=== PATIENT | male | born 1990 | race Caucasian/White ===

== ENCOUNTER 2020-06-02 12:14 | Emergency (ER) | payer OTHER, SELFPAY ==
[2018-07-15 09:39] VITALS: BMI 27.6
[2020-06-02] VITALS (8 sets, daily range): BP systolic 144–151; BP diastolic 79–97; PULSE 85–97; RESP 14–18; TEMP 36.4–36.7; O2SAT 97–99; BMI 27.8
--- NOTE | 2020-06-02 12:33 | CT_ITS ---
STUDY: CT BRAIN WITHOUT CONTRAST REASON FOR EXAM: Male, 29 years old. MENTAL STATUS CHANGES RADIATION DOSAGE (If Supplied By Facility): CTDIvol = ( 44.99 ) mGy, DLP = ( 779.24 ) mGycm TECHNIQUE: Transaxial CT imaging of the brain was performed without administration of intravenous contrast material. Individualized dose optimization techniques were used for this CT. COMPARISON: No relevant priors. FINDINGS: Normal soft tissue structures. Normal calvarium. Normal size ventricles and extra-axial spaces for the patient''s age. Normal white matter tracts of the cerebral hemispheres. Normal basal ganglia and thalami. Normal brainstem. Normal cerebellum. There is no intracranial hemorrhage. There are no findings of an acute ischemic infarction. Normal visualized paranasal sinuses. CT/Brain/Head without Contrast IMPRESSION: Normal unenhanced CT scan of the brain. Electronically Signed: Al Gamble MD at 13:23 EDT Tel , Service support ,
--- NOTE | 2020-06-02 12:34 | ED.DCSUM_ITS ---
History of Present Illness Informant: Patient, Family Onset: Weeks - 1 week Context: Gradual Onset Conflict: Family Timing: Continuous Current Severity: Severe Maximum Severity: Severe Worsened by: Situational factors Relieved by: nothing Associated Symptoms: Change in sleeping, Suicidal Thoughts, Paranoia, Visual Hallucinations Specific plan (suicidal thought): Patient dad this morning he was going to use the dog's leash around neck Narrative: 29-year-old male no significant past medical history presents to emergency department with suicidal thoughts paranoia and visual hallucinations. He has been having these for about a week. He told his dad this morning he was going to use the dog's leash to wrap it around his neck to commit suicide. He was seen by his primary care 2 days ago on Wednesday and started on Prozac. The patient has not had any auditory hallucinations but he does admit to seeing things he has not been sleeping well. He denies drug use. He used to drink 2 or 3 beers a day but he stopped drinking a little over a week ago. He also recently broke up with his girlfriend. Denies any history of similar symptoms. Patient's father states that there are some extended relatives that have history of paranoid schizophrenia Prior similar symptoms: No Recent Illness/Hospitalization: No <Shay Kulkarni - Last Filed: 06/02/20 14:55> <Elgin Plunkett - Last Filed: 06/02/20 17:56> Chief Complaint: Mental Health Past Medical History Prior records reviewed: Yes Past Medical History: None Surgical History: no surgical history Lives: With Family Smoking Status: Current every day smoker Alcohol: Occasional Drugs: None <Shay Kulkarni - Last Filed: 06/02/20 14:55> <Elgin Plunkett - Last Filed: 06/02/20 17:56> - Allergies and Home Meds Allergies/Adverse Reactions: Allergies No Known Allergies Allergy (Verified 06/02/20 12:18) Primary Care Physician: Care Physician,No Primary [Primary Care Provider] - Review of Systems All systems negative except as indicated General: Denies: Chills, Fever, Sweats Eyes: Denies: Visual changes - bilaterally, Diplopia ENT: Denies: Rhinorrhea, Sore throat Cardiovascular: Denies: Chest pain, Palpitations Respiratory: Denies: Dyspnea, Cough, Dyspnea on exertion Gastrointestinal: Denies: Abdominal pain, Nausea, Vomiting, Diarrhea, Melena, Hematochezia Genitourinary: Denies: Dysuria, Hematuria, Frequency Musculoskeletal: Denies: Back pain, Extremity Pain Skin: Denies: Rash, Wounds Neurological: Denies: Headache, Weakness, Numbness Psych: Reports: Suicidal thoughts, Suicidal ideations <Shay Kulkarni - Last Filed: 06/02/20 14:55> Physical Exam Vital Signs/Narrative: Vital Signs Temp Pulse Resp BP Pulse Ox 06/02/20 12:16 97.5 F L 85 16 149/97 H 97 Inital Vital Signs reviewed: Yes General: Well nourished, Well developed Head: Normocephalic, Atraumatic Eyes: Perrl, EOMI ENT: Moist mucous membranes, No rhinorrhea Neck: Supple, Nontender Cardiovascular: Regular rate, Regular rhythm, No murmurs Respiratory: No distress, CTA bilaterally, Chest nontender Abdomen: Soft, Nontender, Nondistended, Normal bowel sounds Back: Nontender, Normal Inspection Extremities: Nontender, No Edema Skin: Normal color, No rash Neurological: Alert, Oriented x3, Cranial nerves II-XII grossly intact, Normal Strength, Normal Sensation Psych: Normal Speech Pattern, Normal Appearance, Flat Affect, Hallucinations, Delusions, Paranoid Ideation <Shay Kulkarni - Last Filed: 06/02/20 14:55> Vital Signs/Narrative: Vital Signs Resp 06/02/20 17:00 16 06/02/20 16:05 15 06/02/20 15:00 15 <Elgin Plunkett - Last Filed: 06/02/20 17:56> Diagnostic/Tx/Re-eval Impressions Brain CT 06/02/20 12:33 IMPRESSION: Normal unenhanced CT scan of the brain. Electronically Signed: Al Gamble MD at 13:23 EDT Tel , Service support , 06/02/20 12:33 Brain/Head without Contrast [CT] Stat Laboratory Results 06/02/20 06/02/20 06/02/20 12:44 12:44 12:44 WBC 9.3 RBC 5.05 Hgb 15.3 Hct 44.8 MCV 88.7 MCH 30.3 MCHC 34.2 RDW Std Deviation 36.9 RDW Coeff of Corby 11.6 Plt Count 273 MPV 8.8 Immature Gran % (Auto) 0.100 Neut % (Auto) 80.4 H Lymph % (Auto) 14.9 L Kershaw % (Auto) 4.1 Eos % (Auto) 0.3 Baso % (Auto) 0.2 Absolute Neuts (auto) 7.5 Absolute Lymphs (auto) 1.39 Nucleated RBC % 0 Sodium 141 Potassium 3.7 Chloride 108 H Carbon Dioxide 28.0 Anion Gap 5 BUN 11 Creatinine 0.98 Estim Creat Clear Calc 115.87 Est GFR (MDRD) Af Amer 117 Est GFR (MDRD) Non-Af 96 BUN/Creatinine Ratio 11.2 Glucose 95 Calcium 9.3 Total Bilirubin 0.50 AST 12 L ALT 27 Alkaline Phosphatase 63 Total Protein 8.0 Albumin 4.5 Globulin 3.5 Albumin/Globulin Ratio 1.3 Urine Opiates Screen Urine Methadone Screen Ur Barbiturates Screen Ur Phencyclidine Scrn Ur Amphetamines Screen U Methamphetamin-MDMA U Benzodiazepines Scrn Urine Cocaine Screen U Cannabinoids Screen Ur Drug Screen Comment Ethyl Alcohol < 3.0 06/02/20 14:00 WBC RBC Hgb Hct MCV MCH MCHC RDW Std Deviation RDW Coeff of Corby Plt Count MPV Immature Gran % (Auto) Neut % (Auto) Lymph % (Auto) Kershaw % (Auto) Eos % (Auto) Baso % (Auto) Absolute Neuts (auto) Absolute Lymphs (auto) Nucleated RBC % Sodium Potassium Chloride Carbon Dioxide Anion Gap BUN Creatinine Estim Creat Clear Calc Est GFR (MDRD) Af Amer Est GFR (MDRD) Non-Af BUN/Creatinine Ratio Glucose Calcium Total Bilirubin AST ALT Alkaline Phosphatase Total Protein Albumin Globulin Albumin/Globulin Ratio Urine Opiates Screen NEGATIVE Urine Methadone Screen NEGATIVE Ur Barbiturates Screen NEGATIVE Ur Phencyclidine Scrn NEGATIVE Ur Amphetamines Screen NEGATIVE U Methamphetamin-MDMA NEGATIVE U Benzodiazepines Scrn NEGATIVE Urine Cocaine Screen NEGATIVE U Cannabinoids Screen POSITIVE H Ur Drug Screen Comment Ethyl Alcohol Restraints applied: No Medical screening work-up was pursued. CT brain was unremarkable. Patient's laboratory work was unremarkable. His alcohol level was negative drug screen positive for THC. Patient remains cooperative. He will be evaluated by crisis for paranoia and hallucinations and delusions. <Shay Kulkarni - Last Filed: 06/02/20 14:55> I saw this patient with the physician carpenter assistant. Patient presents with paranoia and delusions and suicidal ideation. He underwent medical clearance as above. Patient was evaluated by crisis and plan will be psychiatric hospitalization/transfer. <Elgin Plunkett - Last Filed: 06/02/20 17:56> ED Disposition <Shay Kulkarni - Last Filed: 06/02/20 14:55> <Elgni Plunkett - Last Filed: 06/02/20 17:56> - Plan for ED Patient: Disposition: Psychiatric Hospital or Unit Diagnosis: Paranoid delusion, Hallucinations Referrals: Care Physician,No Primary [Primary Care Provider] -
[2020-06-02 12:57] LABS: Absolute Lymphocyte Count 1.39 X10^3/uL (0.83-4.51); Absolute Neutrophil Count 7.5 X10^3/uL (2.0-7.7); Basophil# 0.02 X10^3/uL; Basophil% 0.2 % (0-1); Eosinophil# 0.03 X10^3/uL; Eosinophils% 0.3 % (0-5); Hematocrit 44.8 % (40-54); Hemoglobin 15.3 g/dL (13.0-16.5); Lymphocyte # 1.39 X10^3/ul (4.0); Lymphocyte % 14.9 % (19-41); Mean Corp Hgb Conc 34.2 g/dL (32-36); Mean Corpuscular Hgb 30.3 pg (27.0-32.0); Mean Corpuscular Volume 88.7 fL (80-94); Mean Platelet Vol. 8.8 fl (6.2-12.0); Monocyte# 0.38 X10^3/uL; Monocyte% 4.1 % (0-10); NRBC Flagged by Analyzer 0 % (0-5); Neutrophil # 7.47 X10^3/uL (2.7-7.7); Neutrophil % 80.4 % (47-70); Platelet Count 273 K/mm3 (150-450); RBC Distribution Width CV 11.6 % (11.6-14.6); RBC Distribution Width SD 36.9 fl (35.1-43.9); Red Blood Count 5.05 M/mm3 (4.6-6.2); White Blood Count 9.3 K/mm3 (4.4-11.0)
[2020-06-02 13:15] LABS: ALB/GLOB Ratio 1.3 RATIO (0.9-2.4); AST(SGOT) 12 U/L (15-37); Alanine Aminotransfer ALT/SGPT 27 U/L (16-61); Albumin, Serum 4.5 g/dL (3.2-5.0); Alkaline Phosphatase 63 U/L (45-117); Anion Gap 5 (5-15); BUN 11 mg/dL (7-18); BUN/Creat Ratio 11.2 RATIO (10-20); Calcium,Total 9.3 mg/dL (8.5-10.1); Chloride 108 mmol/L (98-107); Creatinine, Serum 0.98 mg/dL (0.70-1.30); EST Glomerular Filtration Rate 96 mL/min (>60); Est Glom Filt Rate - Afr Amer 117 mL/min (>60); Estimated Creatinine Clearance 115.87 ml/min; Globulin 3.5 g/dL (2.2-4.2); Glucose 95 mg/dL (74-106); Potassium 3.7 mmol/L (3.5-5.1); Sodium Level 141 mmol/L (136-145)
[2020-06-02 13:28] LABS: Alcohol, Blood (Medical)-Serum < 3.0 mg/dL
[2020-06-02 14:30] LABS: Amphetamine Urine VISTA NEGATIVE (<1000 ng/mL); Barbiturate Urine VISTA NEGATIVE (< 200 ng/mL); Benzodiazepine Urine VISTA NEGATIVE (< 200 ng/mL); Cocaine Urine VISTA NEGATIVE (< 300 ng/mL); Ecstacy Urine VISTA NEGATIVE (< 500 ng/mL); Methadone Urine VISTA NEGATIVE (< 300 ng/mL); PCP Urine VISTA NEGATIVE (< 25 ng/mL); THC Urine VISTA POSITIVE (< 50 ng/mL); Vista UDS pH Range 6
--- NOTE | 2020-06-02 15:13 | ED.RN ---
Addendum entered by Shelia He 06/02/20 16:15: [facility] NOT [facility] Original Note: FAXED PT INFORMATION TO [facility]
--- NOTE | 2020-06-02 16:15 | ED.RN ---
SPOKE WITH [facility] AT [facility]; [facility] IS [facility] AND SHOULD BE CALLING FOR PT
--- NOTE | 2020-06-02 18:15 | NURSING ---
Tlia from [facility] called; paperwork has been faxed to [facility]. Waiting to hear back.
--- NOTE | 2020-06-02 21:51 | ED.RN ---
PT ACCEPTED TO [facility]. RN TO RN REPORT GIVEN TO ANTONIO LUNDBERG WITH NO QUESTIONS OR CONCERNS. [facility] TO TRANSPORT PATIENT. RN WILL CONTINUE TO MONITOR.
== END 2020-06-02 21:54 ==
PROVIDERS: Emergency Provider Physician Assistant Medical
DX: F22 Delusional disorders (principal); R45.851 Suicidal ideations; Z81.8 Family history of other mental and behavioral disorders; F17.200 Nicotine dependence, unspecified, uncomplicated; Z79.899 Other long term (current) drug therapy
CPT/HCPCS: 36415; 70450; 80053; 80307; 80320; 85025; 99283; G0480